=== PATIENT | male | born 1960 | race Caucasian/White ===

== ENCOUNTER → 2018-08-29 15:12 | Outpatient (CLI) | payer OTHER, SELFPAY ==
--- NOTE | 2018-08-29 15:14 | US_ITS ---
US kidney retroperitoneal comp HISTORY: ITS.REASON: Neurogenic Bladder ORDERING PHYSICIAN: Amador Dowd MD PATIENT AGE: 58 years Comparison: 08/02/2015 FINDINGS: RIGHT KIDNEY:Unremarkable. Normal size and echogenicity. No hydronephrosis the right kidney is 12 x 6 x 7 cm. No cortical thinning. LEFT KIDNEY:Unremarkable. No hydronephrosis. Normal size and echogenicity.. The left kidney is 14 x 7 x 6 cm. No cortical thinning OTHER FINDINGS: No other pertinent findings IMPRESSION: Unremarkable bilateral renal ultrasound
== END ==
PROVIDERS: PCP Family Medicine; Visit Provider Urology
DX: N31.9 Neuromuscular dysfunction of bladder, unspecified (principal)
CPT/HCPCS: 76770

== ENCOUNTER → 2019-09-08 14:31 | Outpatient (CLI) | payer OTHER, SELFPAY ==
[2019-09-08 18:18] LABS: Prostate Specific Ag Screen 0.7 ng/ml (0.0-4.0)
== END ==
PROVIDERS: Visit Provider Urology
DX: Z12.5 Encounter for screening for malignant neoplasm of prostate (principal)
CPT/HCPCS: 36415; G0103

== ENCOUNTER → 2020-09-16 14:59 | Outpatient (CLI) | payer OTHER, SELFPAY | PROVIDERS: Visit Provider Urology | DX: Z12.5 Encounter for screening for malignant neoplasm of prostate (principal) | CPT/HCPCS: 36415; G0103 ==

== ENCOUNTER → 2021-09-29 16:08 | Outpatient (CLI) | payer OTHER, SELFPAY ==
[2021-09-29 17:32] LABS: Prostate Specific Ag Screen 2.4 ng/ml (0.0-4.0)
== END ==
PROVIDERS: PCP Family Medicine; Visit Provider Urology
DX: Z12.5 Encounter for screening for malignant neoplasm of prostate (principal)
CPT/HCPCS: 36415; G0103